=== PATIENT | male | born 1960 ===

== ENCOUNTER 2018-10-22 12:33 | Outpatient (CLI) | payer OTHER ==
[~2018-10-22 12:33] MED LIST: BYSTOLIC5 MG PO
== END 2018-10-22 12:45 | disposition home or self-care (01) ==
LOC: RAD 12:33
DX: J45.998 Other asthma (principal); N39.0 Urinary tract infection, site not specified; N23 Unspecified renal colic; N13.2 Hydronephrosis with renal and ureteral calculous obstruction

== ENCOUNTER 2024-01-24 09:26 | Outpatient (CLI) | payer OTHER | END 2024-01-24 09:32 | disposition home or self-care (01) | LOC: SONOGRAMA 09:26 | PROVIDERS: ATTEND Specialist | DX: N20.0 Calculus of kidney (principal); N18.31 Chronic kidney disease, stage 3a ==